=== PATIENT | male | born 1990 | race African-American/Black ===

== ENCOUNTER 2017-12-24 05:35 | Day surgery (SDC) | payer MEDICAID ==
[~2017-12-24] VITALS: Ht 203.2 cm; Wt 191.9 kg
[2017-12-24] MEDS ORDERED: BUPIVACAINE HCL/PF 0.25% (2.5MG/ML) 10ML ONE (07:11)
[2017-12-24] MEDS ORDERED: BACITRACIN ZINC 15GM TUBE TOP ONE (07:11)
[2017-12-24] MEDS ORDERED: LIDOCAINE HCL/PF 1% 10 MG/ML 5ML VIAL ONE (07:38)
[2017-12-24] MEDS ORDERED: CEFAZOLIN SODIUM 1000MG/VIAL ONE (07:38)
[2017-12-24] MEDS ORDERED: PROPOFOL 200MG/20ML VIAL IV ONE (07:38)
[2017-12-24] MEDS ORDERED: MIDAZOLAM HCL 2 MG/2 ML VIAL ONE (07:38)
[2017-12-24] MEDS ORDERED: FENTANYL CITRATE/PF 50MCG/ML 2ML VIAL ONE (07:38)
[2017-12-24] MEDS ORDERED: ROCURONIUM BROMIDE 10MG/ML VIAL 5ML IV ONE (07:41)
[2017-12-24] MEDS ORDERED: METOCLOPRAMIDE HCL 10MG/2ML VIAL ONE (08:09)
[2017-12-24] MEDS ORDERED: ONDANSETRON HCL 4MG/2ML VIAL ONE (08:09)
[2017-12-24] MEDS ORDERED: MORPHINE SULFATE 4 MG/ML CPJ (NOT FOR IM USE) IV PRN (08:15)
[2017-12-24] MEDS ORDERED: LISI40TA4 PO (10:26)
[2017-12-24] MEDS ORDERED: METF500T4 PO (10:26)
[2017-12-24] MEDS ORDERED: LORA10TA7 PO (10:26)
[2017-12-24] MEDS ORDERED: HYDR12.54 PO (10:26)
== END 2017-12-24 11:05 | disposition home or self-care (01) ==
LOC: OR 05:35
PROVIDERS: ATTEND Urology
DX: N47.1 Phimosis (principal); E11.9 Type 2 diabetes mellitus without complications; I10 Essential (primary) hypertension; E66.9 Obesity, unspecified; Z79.84 Long term (current) use of oral hypoglycemic drugs; Z79.899 Other long term (current) drug therapy; G47.30 Sleep apnea, unspecified; E66.01 Morbid (severe) obesity due to excess calories
CPT/HCPCS: 54161; 82962; 88304; J0690; J2250; J2405; J2765; J3010; J3490; J7030; J2704